=== PATIENT | female | born 1990 | race Caucasian/White ===

== ENCOUNTER 2016-11-17 16:55 | Emergency (ER) | payer MEDICAID, OTHER ==
[~2016-11-17] VITALS: Ht 157.5 cm; Wt 58.5 kg
[~2016-11-17 16:55] MED LIST: ALBU8.5H INH; BUDE180A ORAL INH; FLUT100D2 INH; GUAI-782 PO; LORA0.5T2 PO; PROM5SYR PO
[2016-11-17 17:00] VITALS: Ht 157.5 cm; Wt 58.5 kg
--- OUTSIDE RECORDS SUMMARY | 2016-11-17 17:01 | XMS REPORT | Continuity of Care Document ---
Author Author [facility] Organization [facility] Address Unknown Phone Unavailable Support Name Relationship Address Phone ZAC ARZATE MD Caregiver [address] [address] Unavailable CARLITOS WONG MD Caregiver [address] [place] [address] Unavailable GIO RAMIREZ Next Of Kin [address] [place] [phone] Insurance Providers Guarantor Shannon Walters Address [address] [phone] Email DENIED 09-20-16 Payer Self Pay Subscriber's Name Shannon Walters Relationship 18 Self Advance Directives Directive Response Recorded Date/Time Advanced Directives Type None 09/20/16 12:08pm Chief Complaint and Reason for Visit Chief Complaint Cough,Fever,Flu,URI Reason for Visit Acute bronchitis Problems Active Problems Medical Problem Onset Date Status Depression complicating in third trimester, antepartum Unknown Viral gastroenteritis Unknown Acute Surgical Problem Onset Date Status Status post repeat low transverse section Unknown Past Problems Medical Problem Onset Date Acute bronchitis Unknown Medications Current Home Medications Medication Dose Units Route Directions Days Qty Instructions Start Date Albuterol Sulfate (Proair Hfa 90 Mcg/Actuation) 8.5 Gm Hfa.aer.ad 2 Puff Inhalation Every 4 Hours as needed for Shortness Of Air 11/24/15 Budesonide (Pulmicort Flexhaler 180) 120 Puff/Inhaler Inha 1 Puff Oral Inhalation Daily 11/24/15 Fluticasone Propionate (Flovent Diskus) 100 Mcg Blst.w.dev 1 Puff Inhalation Daily as needed for Prn Orders 09/20/16 Guaifenesin/Dextromethorphan (Mucinex Dm Er 600-30 Mg Tablet) 1 Each Tab.er.12h 1 Tab Oral Every 12 Hours as needed for Prn Orders Lorazepam 0.5 Mg Tablet 0.5 Mg Oral Twice A Day 09/20/16 Promethazine Hcl/Codeine (Prometh-Codein 6.25-10 Mg/5 Ml) 5 Ml Syrup 5 Ml Oral Every 6 Hr Prn as needed for Cough 120 Milliliter 09/20/16 Past Home Medications Medication Directions Ordered Status Ondansetron Hcl (Zofran) 4 Mg Tablet, 4 Mg Oral As Needed 12/11/11 Discontinued Vits W-Ca,Fe,Fa(<1MG) () 1 Tab Tablet, 1 Tab Oral Daily 08/22 Discontinued Social History Social History Problem Response Recorded Date/Time Onset Date Status Chewing Tobacco Status No 07/03/2013 9:52pm Not Applicable Not Applicable Hx Substance Use No 09/20/2016 12:58pm Not Applicable Not Applicable Hx Alcohol Use Y weekends 09/20/2016 12:58pm Not Applicable Not Applicable Has the pt used tobacco in the last 12 months Yes 11/24/2015 1:12pm Not Applicable Not Applicable Query Response Start Date Stop Date Smoking Status Current every day smoker Hospital Discharge Instructions No hospital discharge instructions. Plan of Care Discharge Date 09/20/16 1:22pm Disposition 01 DISCHARGED HOME, SELF-CARE Condition at Discharge Stable Instructions/Education Provided Acute Bronchitis (ED) Prescriptions See Medication Section Referrals ZAC ARZATE MD Address: [address] [place] [address] [place] [phone] Additional Instructions/Education The chest xray today was negative for pneumonia. I do want you to take some Ibuprofen and/or Tylenol as needed. Promethazine with Codeine cough syrup as needed for cough. If you are not improving at all then please follow up with your primary care provider. Care Plan and Goals Physician Care Plan Problem:Bronchitis Goal: Follow up with primary care provider Instructions: Take medications and follow care plan as discussed/written Functional Status No functional status results. Allergies, Adverse Reactions, Alerts No known allergies. Immunizations Query Response on File Recorded Date/Time Hx Influenza Vaccination Y 04/13/2012 11/24/15 1:12pm Hx Pneumococcal Vaccination No 11/24/15 1:12pm Hx Influenza Vaccination Y 04/13/2012 11/24/15 1:12pm Influenza Vaccine Hx 04/13/2012 09/20/16 12:58pm Tdap Vaccine Hx 10/21/2015 11/24/15 12:37pm Vital Signs Acute Vital Signs Vital Response Date/Time Temperature (Fahrenheit) 97.9 deg F (96.8 - 99.1) 09/20/2016 1:22pm Temperature (Calculated Celsius) 36.47739 degrees C (36.0 - 37.3) 09/20/2016 1:22pm Pulse Rate (adult) 70 bpm (60 - 100) 09/20/2016 1:22pm Respiratory Rate 16 breaths/min (10 - 20) 09/20/2016 1:22pm O2 Sat by Pulse Oximetry 97 % (90 - 100) 09/20/2016 1:22pm Blood Pressure 104/70 mm Hg 09/20/2016 1:22pm Height (Feet) 5 feet 09/20/2016 12:08pm Height (Inches) 2.00 inches 09/20/2016 12:08pm Weight (Kilograms) 61.000 kg 09/20/2016 12:08pm Body Mass Index (BMI) 24.0 09/20/2016 12:08pm Results Name: SHANNON WALTERS Unit #: [id number] : 1990 Sex: F Admit Date: Loc / Svc: ED Discharge Date: DIAGNOSTIC IMAGING REPORT Report #: [id number] [place], [place] INDICATION: ITS.REASON: 26-year-old female with cough, fever PROCEDURE: CHEST 2-VIEWS UPRIGHT (PA \T\ LAT) Encounter: Initial COMPARISON: None FINDINGS: The lungs are clear without evidence of focal abnormal airspace opacity. There is no pleural effusion or pneumothorax. The heart size, mediastinal contours and pulmonary vascularity are within normal limits. There is no significant skeletal abnormality. IMPRESSION: No acute cardiopulmonary disease; specifically, negative for pneumonic infiltrate.. . Procedures No known history of procedures. Encounters Encounter Location Arrival/Admit Date Discharge/Depart Date Attending Provider Departed Emergency Room [facility] 09/20/16 12:04pm 09/20/16 1: 22pm CARLITOS WONG MD Recent Diagnosis
[2016-11-17] MEDS ORDERED: MULT-65 PO (17:14)
[2016-11-17] MEDS ORDERED: ALBU2.5V7 AEROSOL (17:15)
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
[2016-11-17] MEDS ORDERED: HYDROMORPHONE 2mg/ml INJECTION IM ONE (17:30)
[2016-11-17] MEDS ORDERED: ONDANSETRON ODT 4 MG TAB PO ONE (17:30)
[2016-11-17] MEDS ORDERED: ACETAMINOPHEN 325 MG TABLET PO ONE (20:15)
[2016-11-17 20:20] VITALS: BP 112/70; PULSE 58; RESP 14; TEMP 98.4; O2SAT 99
--- NOTE | 2016-11-18 09:00 | DI ---
EXAM: KNEE LEFT 2 VIEW COMPARISON: None available. HISTORY: ITS.REASON: pain over anterior knee . FINDINGS: There is no evidence for acute fracture, subluxation, or dislocation. No osseous abnormality is identified. No significant joint effusion is appreciated. IMPRESSION: Unremarkable exam. LOCATION OF DICTATION: [facility] .
--- NOTE | 2016-11-18 09:09 | DI ---
EXAM: CERVICAL SPINE 3 VIEWS OR LESS COMPARISON: None available. HISTORY: ITS.REASON: TTP over entire C spine . FINDINGS: Study is somewhat limited as C7 and C7-T1 is not visualized on the lateral projection. The cervical vertebral bodies are otherwise well aligned. Vertebral body heights are otherwise well-maintained. There is straightening of the normal cervical lordosis which could be seen with muscular skeletal strain. There is no evidence for acute fracture, subluxation, or dislocation. The odontoid view appears unremarkable. There is a tiny osseous structure at the anterior superior endplate of C6 which may represent an incompletely fused apophysis. IMPRESSION: Study somewhat limited as C7 and C7-T1 is not visualized on the lateral projection. However, no definite evidence for acute fracture is identified from C1 to C6. LOCATION OF [place]CT[place]: [facility] [place] [facility] [place]
--- NOTE | 2016-11-18 09:11 | DI ---
EXAM: THORACIC SPINE SERIES, 3 VIEW COMPARISON: None available. HISTORY: ITS.REASON: TTP over T 1-6 . FINDINGS: Thoracic vertebral bodies are well aligned. Vertebral body heights are well-maintained. The pedicles and spinous processes are intact and are well aligned. The medial ribs are intact. The cardiomediastinal silhouette appears unremarkable. There is some straightening of the normal thoracic kyphosis which can be seen with musculoskeletal strain. IMPRESSION: Unremarkable exam. [place] [facility] [place]
== END 2016-11-17 20:20 | disposition home or self-care (01) ==
LOC: ED 16:55
DX: S13.9XXA Sprain of joints and ligaments of unspecified parts of neck, initial encounter (principal); S80.02XA Contusion of left knee, initial encounter; M54.6 Pain in thoracic spine; Z32.01 Encounter for pregnancy test, result positive; V49.50XA Passenger injured in collision with unspecified motor vehicles in traffic accident, initial encounter; Y93.89 Activity, other specified; Y92.410 Unspecified street and highway as the place of occurrence of the external cause; Y99.8 Other external cause status
CPT/HCPCS: 36415; 72040; 72072; 73560; 84703; 99283; J1170; L0150

== ENCOUNTER 2017-10-06 14:04 | Inpatient (IN) ==
[2017-10-06 14:55] VITALS: BMI 31.6
[2017-10-06] MEDS ORDERED: CEFAZOLIN PREMIX (MC ONLY) 2 GM/50 ML BAG IV ONE (15:00)
[2017-10-06] MEDS ORDERED: NOZIN NASAL SWAB NAS ONE (15:00)
[2017-10-06] MEDS ORDERED: FAMOTIDINE PB 20 MG/50 ML BAG IV ONE (15:00)
[2017-10-06] MEDS ORDERED: CITRIC ACID/SODIUM CITRATE 30ml PO ONE (15:00)
--- NOTE | 2017-10-06 15:50 | Anesthesia Preoperative Report ---
Anesthesia Epidural/Spinal Rec - Date and Time Date: 10/06/17 Preoperative Diagnosis: previous c - section Procedure: Plan: Epidural - Vital Signs NPO since: 1100 /Para: P:2 - Medictaions & Allergies Inpatient Medications: Current Medications Lactated Ringer's (Lactated Ringers) 1,000 mls @ 150 mls/hr IV .Q6H40M LINNETTE Allergies/Adverse Reactions: Allergies Allergy/AdvReac Type Severity Reaction Status Date / Time banana Allergy Intermediate Mouth Verified 09/11/17 15:38 swelling, Diarrhea, Vomiting - Home Medications Home Medications: Home Medications Medication Instructions Recorded Confirmed Type Albuterol Sulfate [Proair Hfa] 2 puff INH Q4H PRN #0 11/24/15 09/11/17 History Albuterol Sulfate 2.5 mg AEROSOL Q4H PRN 09/11/17 09/11/17 History Ferrous Sulfate [Iron] 325 mg PO DAILY 09/11/17 09/11/17 History Hydrocodone/APAP 5/325 [Gonzales 1 tab PO Q6HPRN PRN #7 tab 09/11/17 Rx 5/325] LORazepam [Ativan] 0.5 mg PO DAILY PRN 09/11/17 09/11/17 History Multivitamin [One Daily 1 tab PO DAILY 09/11/17 09/11/17 History Multivitamin] - Medical History Respiratory: Reports: Asthma Neuro/Musculoskeletal: Reports: Depression Other History: Reports: Now - Surgical History HEENT Surgeries: Reports: Other (wisdom teeth extraction) Reproductive Surgery/Treatment: Reports: Section (X2) DENIES: Hysterectomy, Tubal Ligation Anesthesia Reactions: None Hx Family Anesthesia Reaction: No History of Motion Sickness: No - Social History Smoking Status: Current every day smoker Packs per day: 1 Pack-years: 10 Second Hand Exposure: No Time spent discussing smoking cessation with patient: 3 to 10 minutes Substance Use Type: does not use Alcohol Intake Frequency: does not drink Hx Chewing Tobacco Use: No - Pertinent Findings Lab Data: CBC and BMP 10/06/17 15:14 - Physical Exam Respiratory Exam: lungs clear Cardiovascular Exam: regular rate and rhythm, no murmur - Airway Assessment Mallampati Score: I TMD: 3 Fingerbreadths Neck Extension: good Teeth: chipped teeth/crowns Overall Assessment: no airway concerns - ASA ASA Score: 2 - Discussion Discussion: Discussed risks/options/alternatives of anesthesia and questions answered. Patient consents. Nursing pain assessment noted. Attestation Statement: Prior to the delivery of any anesthetic medication, I examined the patient, developed the plan, obtained the patient's consent and discussed the risk and benefits of the procedure with the patient/guardian.
[2017-10-06] MEDS ORDERED: ONDANSETRON 4 MG/2 ML INJECTION IVP PRN ×2 (15:51→20:19)
[2017-10-06] MEDS ORDERED: NALOXONE 2 MG/2 ML INJECTION PFS IVP PRN (15:51)
[2017-10-06] MEDS ORDERED: SALINE FLUSH 10ml SYRINGE ONE (16:01)
[2017-10-06] MEDS ORDERED: EPHEDRINE 50mg/ml INJECTION ONE (16:05)
[2017-10-06] MEDS: LR 1,000 ML IV SCH ×2 (16:10→17:13)
[2017-10-06] MEDS ORDERED: LIDOCAINE 1% (10mg/ml) 30ml SDV INJ ONE (17:03)
[2017-10-06] MEDS ORDERED: FentaNYL 250 MCG/5 ML INJECTION ONE (17:04)
[2017-10-06] MEDS ORDERED: BUPIVACAINE 0.25% (2.5mg/ml) PF 30ml INJECTION ONE (17:13)
[2017-10-06] MEDS ORDERED: ONDANSETRON 4 MG/2 ML INJECTION ONE (17:20)
[2017-10-06] MEDS ORDERED: OXYTOCIN BOLUS BAG 30 UNIT/500 ML ML IV SCH (17:24)
[2017-10-06] MEDS ORDERED: MORPHINE SULFATE PF 5mg/10ml INJ (Duramorph) ONE (17:35)
--- NOTE | 2017-10-06 18:03 | Operative Note ---
Operative Note - Date of Operation Date of Operation: 10/06/17 - General : 4 Para: 2 Estimated or Known Gestational Age (weeks): 37 Estimated or Known Gestational Age (days): 5 - Preoperative Diagnosis Previous Section Preoperative Diagnosis: Labor - Postoperative Diagnosis same as preoperative - Procedure Repeat, Low-transverse - Surgeon Surgeon: Marli Whitfield MD - Fuel Agent OB Fuel Agent: Jovanna Kerr MD - Anesthesia Anesthesia Provider: Joseph Richmond CRNA Anesthesia Type: Epidural - Complications Complications: None - Estimated Blood Loss Estimated Blood Loss:: 700 - Findings Findings: viable female, clear fluids, normal uterus, normal adenexa, cephalic - APGARS : 8,9 - Vallejo Weight Vallejo Weight (grams): 4032 - Indications Indications: The patient presented to the office with complaints of contractions. Her cervix was 1-2/50, which was a change from last PM, so she was sent to . - Description of Procedure Description of Procedure: The patient was taken to the operating room where anesthesia was obtained . She was placed in the dorsal supine position with a leftward tilt. A Grove catheter was placed . She was prepared and draped in the normal sterile fashion. A Pfannenstiel incision was made through her previous incision and carried down to the fascia. The fascia was incised in the midline with the scalpel and then extended laterally with the River scissors. The fascia was elevated, and the underlying rectus muscles were dissected off. The peritoneum was entered bluntly . This was extended superiorly and inferiorly with good visualization of the bladder. The bladder blade was inserted. The bladder was low enough on the uterus that a bladder flap was not created. The lower uterine segment was incised in a transverse fashion [id number] with the scalpel and bluntly extended. The uterine wall was very thin. The membranes were ruptured. The infants head was delivered atraumatically. The nose and mouth were suctioned. The cord was clamped and cut. The infant was handed to Dr. Koenig who was asked to attend the delivery due to labor prior to 39 weeks. The placenta delivered spontaneously. The uterus was exteriorized and cleared of all clots and debris. The uterus was closed with running, locked 0- monocryl. Hemostasis was obtained on the serosal edges with cautery. The uterus was returned to the abdomen. The gutters were cleared of all clots and debris. The uterine incision was inspected one final time and still noted to be hemostatic. The peritoneum was closed with running 2-0 vicryl. Hemostasis was obtained in the rectus muscles with the cautery. The fascia was closed with running 0-vicryl. Hemostasis was obtained in the subcutaneous tissue with the cautery. The skin was closed with 4-0 vicryl in a subcuticular manner. Steri- strips were placed. Sponge, sharp, and instrument counts were correct. The patient tolerated the procedure well and was taken to the recovery room in good condition.
[2017-10-06] MEDS ORDERED: RHOPHYLAC - PHARMACY CONSULT MC ONE (18:22)
[2017-10-06] MEDS ORDERED: HYDROCORTISONE 2.5% CREAM 30gm RECTALLY PRN (18:22)
[2017-10-06] MEDS ORDERED: MEASLES-MUMPS-RUBELLA VACCINE 0.5ml INJECTION SQ ONE (18:22)
[2017-10-06] MEDS ORDERED: OXYTOCIN DRIP 30 UNIT/500 ML ML IV SCH (18:22)
[2017-10-06] MEDS ORDERED: SIMETHICONE 80 MG CHEWABLE TABLET PO PRN (18:22)
[2017-10-06] MEDS ORDERED: ACETAMINOPHEN 500 MG TABLET PO PRN (18:22)
[2017-10-06] MEDS ORDERED: DiphenhydrAMINE 25 MG CAPSULE PO PRN (18:22)
[2017-10-06] MEDS ORDERED: CALCIUM CARBONATE Chewable 500mg TABLET PO PRN (18:22)
[2017-10-06] MEDS: D5LR 1,000 ML IV SCH (18:41)
--- NOTE | 2017-10-06 20:16 | Anesthesia Postoperative Note ---
- Date and Time Date: 10/06/17 Time: 20:15 - Status Patient Participated in Evaluation: Patient Participated in Person Respiratory Function: Airway Patent Cardiovascular Function: Regular Pulse Mental Status: Alert and Oriented Pain Intensity: 0 Hydration: Taking PO Fluids Complications During Recover: None Apparent - Follow-Up Instructions Instructions: Per Surgeon
[2017-10-06] MEDS: IBUPROFEN 800 MG TABLET PO PRN (20:56)
[2017-10-06] MEDS: HYDROCODONE/APAP 5mg/325mg TABLET PO PRN (20:57)
[2017-10-06] MEDS: SIMETHICONE 80 MG CHEWABLE TABLET PO SCH (22:40)
[2017-10-07] MEDS: HYDROCODONE/APAP 5mg/325mg TABLET PO PRN ×6 (02:15→23:05)
[2017-10-07] MEDS: SIMETHICONE 80 MG CHEWABLE TABLET PO SCH ×5 (02:39→23:06)
[2017-10-07] MEDS: D5LR 1,000 ML IV SCH ×2 (06:22→18:39)
[2017-10-07] MEDS: IBUPROFEN 800 MG TABLET PO PRN ×3 (06:23→23:05)
[2017-10-07] MEDS: DOCUSATE CALCIUM 240 MG CAPSULE PO SCH (08:47)
--- NOTE | 2017-10-07 08:51 | Pharmacy Consult ---
Pharmacy Consult-Rhophylac - Laboratory Information 10/06/17 10/06/17 10/06/17 15:14 18:57 23:26 Hgb /Adult Ratio 0.0000 Blood Type A Negative RhIG Candidate? Is a candidate - Consult Information Rh FACTOR CONSULT: Mother Blood Type = A NEGATIVE Child Blood Type = 0 POSITIVE Hgb / Adult Ratio = 0.0000 Will give Rho D Immunglobulin 300mcg IV x 1 dose. Thank you. Dianne Jones, PharmD
[2017-10-07] MEDS ORDERED: RHO(D) IMMUNE GLOBULIN 300 MCG/2 ML INJECTION IVP ONE (09:00)
--- NOTE | 2017-10-07 09:28 | OB/GYN Progress Note ---
OB-PP Progress Note - General PPD1 POD:: POD1 Maternal Group B Strep: Negative Maternal blood type: A- Maternal Rubella Status: Not Immune - Subjective Date: 10/07/17 Lochia: Minimal Pain: controlled Voiding: not voiding (Grove just removed not been up to void yet) - Objective Vital Signs: Last Vital Signs Temp 97.7 F 10/07/17 08:00 Pulse 59 L 10/07/17 08:00 Resp 16 10/07/17 08:00 BP 105/63 10/07/17 08:00 Pulse Ox 96 10/07/17 08:00 General: alert and oriented Cardiovascular: regular rate,rhythm Respiratory: non-labored Abdomen: fundus firm, non-tender Incision: normal, clean, no erythema, dry, intact Extremities: non-tender Laboratory: Laboratory Results - last 24 hr 10/06/17 10/06/17 10/06/17 15:14 15:14 18:57 WBC 8.5 RBC 3.86 L Hgb 12.1 Hct 36.5 MCV 94.6 MCH 31.3 MCHC 33.2 RDW Std Deviation 45.0 Plt Count 175 MPV 10.7 Immature Gran % (Auto) 0.8 H Neut % (Auto) 82.4 H Lymph % (Auto) 12.0 L Blackford % (Auto) 3.5 Eos % (Auto) 1.2 Baso % (Auto) 0.1 Neut # (Auto) 7.0 Lymph # (Auto) 1.0 Blackford # (Auto) 0.3 Eos # (Auto) 0.1 Baso # (Auto) 0.0 Abs Immat Gran (auto) 0.07 H Hgb /Adult Ratio Blood Type A Negative Antibody Screen Positive A* Antibody Identification Immune D RhIG Candidate? Is a candidate 10/06/17 10/07/17 23:26 07:00 WBC 8.6 RBC 3.41 L Hgb 10.8 L Hct 32.5 L MCV 95.3 MCH 31.7 MCHC 33.2 RDW Std Deviation 45.1 Plt Count 159 MPV 10.5 Immature Gran % (Auto) Neut % (Auto) Lymph % (Auto) Blackford % (Auto) Eos % (Auto) Baso % (Auto) Neut # (Auto) Lymph # (Auto) Blackford # (Auto) Eos # (Auto) Baso # (Auto) Abs Immat Gran (auto) Hgb /Adult Ratio 0.0000 Blood Type Antibody Screen Antibody Identification RhIG Candidate? - Assessment Assessment: SP, Repeat C/S - Plan Plan: routine care
[2017-10-08] MEDS: D5LR 1,000 ML IV SCH (01:28)
[2017-10-08] MEDS: HYDROCODONE/APAP 5mg/325mg TABLET PO PRN ×3 (03:03→11:55)
[2017-10-08] MEDS: DOCUSATE CALCIUM 240 MG CAPSULE PO SCH ×2 (06:55→09:23)
[2017-10-08] MEDS: SIMETHICONE 80 MG CHEWABLE TABLET PO SCH ×6 (06:55→23:10)
[2017-10-08] MEDS: IBUPROFEN 800 MG TABLET PO PRN ×3 (06:56→23:11)
--- NOTE | 2017-10-08 13:42 | Progress Note ---
OB PP Progress Note Free Text - Date Date: 10/08/17 - Progress Note Progress Note: vss af doing ok POD2 c/o right side corner pain near incision site and pain med only lasting 3 hrs incision c/d/i q&a
[2017-10-08] MEDS ORDERED: CALCIUM CARBONATE Chewable 500mg TABLET PO PRN (14:00)
[2017-10-08] MEDS: SERTRALINE 50 MG TABLET PO SCH (15:13)
[2017-10-08] MEDS: HYDROCODONE/APAP 7.5 MG/325 MG TABLET PO PRN ×2 (16:19→20:28)
[2017-10-09] MEDS: HYDROCODONE/APAP 7.5 MG/325 MG TABLET PO PRN ×3 (01:43→11:55)
[2017-10-09] MEDS: IBUPROFEN 800 MG TABLET PO PRN (07:33)
[2017-10-09] MEDS: DOCUSATE CALCIUM 240 MG CAPSULE PO SCH ×2 (07:34→11:53)
[2017-10-09] MEDS: SERTRALINE 50 MG TABLET PO SCH ×2 (07:35→11:54)
[2017-10-09] MEDS: SIMETHICONE 80 MG CHEWABLE TABLET PO SCH ×2 (07:36→11:55)
[2017-10-09 07:46] VITALS: BP 143/87; PULSE 62; RESP 18; TEMP 98.3; O2SAT 97
--- NOTE | 2017-10-09 10:12 | Progress Note ---
OB PP Progress Note Free Text - Date Date: 10/09/17 - Progress Note Progress Note: vss af pain better controlled with Lortab 7.5 needs rx's dc instructions reviewed f/u this week q&a
== END 2017-10-09 12:15 | disposition home or self-care (01) | DRG 766 ==
LOC: MC 14:05 → OBOBS 14:06 → MC 14:35
PROVIDERS: ADMIT Obstetrics & Gynecology; ATTEND Obstetrics & Gynecology